=== PATIENT | female | born 1940 | race Caucasian/White ===

== ENCOUNTER 2017-01-25 15:09 | Emergency (ER) | payer OTHER ==
[~2017-01-25] VITALS: Ht 152.4 cm; Wt 70.4 kg
[~2017-01-25 15:09] MED LIST: CIPRO500 MG PO; EXFORGE 10/31 TABLET PO; LASIX20 MG PO; LOPRESSOR25 MG PO; OMEPRAZOLE20 MG PO; QUINAPRIL HCL40 MG PO; TYLENOL EXTRA500 MG PO; XANAX0.25 MG PO
[2017-01-25 15:36] VITALS: BP 155/78
== END 2017-01-25 17:03 | disposition home or self-care (01) ==
LOC: EME 15:09
PROC: 2W3CX1Z Immobilization of Right Lower Arm using Splint (ICD-10-PCS; principal; 2017-01-25)
DX: S52.591A Other fractures of lower end of right radius, initial encounter for closed fracture (principal); W10.9XXA Fall (on) (from) unspecified stairs and steps, initial encounter; I10 Essential (primary) hypertension; Z88.0 Allergy status to penicillin
CPT/HCPCS: 73110; 99281; 99283